=== PATIENT | female | born 1990 | race Hispanic/Latino ===

== ENCOUNTER 2018-01-03 23:39 | Outpatient (CLI) | payer MEDICAID ==
[2018-01-04 00:12] VITALS: BP 119/62
[2018-01-04] MEDS ORDERED: LACTATED RINGERS 500 ML IV ONE (00:46)
[2018-01-04 01:30] LABS: Bacteria,Urine 2+ /HPF (Negative); Bilirubin,Urine NEG (Negative); Blood,Urine NEG (Negative); Calcium Oxalate Crystals,Urine 3+; Color,Urine Yellow (Yellow); Mucus,Urine FEW /HPF; Protein,Urine <15 mg/dL mg/dL (Negative); Urobilinogen,Urine < 2.0 mg/dL (<2.0)
[2018-01-04 01:32] LABS: RBC,Urine < 1.0 /HPF (0.0-6.0)
--- NOTE | 2018-01-04 02:03 | Ultrasound Report ---
FINAL REPORT EXAM: US OB LIMITED HISTORY: unable to assess heart tones TECHNIQUE: A limited OB sonogram was obtained to evaluate for viability. FINDINGS: There is a single fetus in cephalic presentation. The heart rate is 135 BPM. The placenta is anterior in position is grade 0. A survey of organs was not obtained. IMPRESSION: heart rate is 135 BPM.
== END 2018-01-04 02:55 | disposition home or self-care (01) ==
LOC: TRG 23:39
PROVIDERS: ATTEND Obstetrics & Gynecology
DX: O47.02 False labor before 37 completed weeks of gestation, second trimester (principal); Z3A.21 21 weeks gestation of pregnancy
CPT/HCPCS: 76815; 81001

== ENCOUNTER 2018-03-01 22:18 | Outpatient (CLI) | payer SELFPAY ==
[2018-03-01 22:53] VITALS: BP 113/60
== END 2018-03-01 23:19 | disposition home or self-care (01) ==
LOC: TRG 22:18
PROVIDERS: ATTEND Obstetrics & Gynecology
DX: O47.03 False labor before 37 completed weeks of gestation, third trimester (principal); Z3A.29 29 weeks gestation of pregnancy
CPT/HCPCS: 59025

== ENCOUNTER 2018-03-10 23:57 | Outpatient (CLI) | payer SELFPAY ==
[2018-03-11 00:42] VITALS: BP 118/76
[2018-03-11 01:51] LABS: Bacteria,Urine 2+ /HPF (Negative); Bilirubin,Urine NEG (Negative); Blood,Urine NEG (Negative); Calcium Oxalate Crystals,Urine 3+; Color,Urine Yellow (Yellow); Mucus,Urine 1+ /HPF; Protein,Urine <15 mg/dL mg/dL (Negative); Urobilinogen,Urine < 2.0 mg/dL (<2.0)
[2018-03-11] MEDS ORDERED: LACTATED RINGERS 500 ML IV ONE (02:42)
== END 2018-03-11 02:47 | disposition home or self-care (01) ==
LOC: TRG 23:57
PROVIDERS: ATTEND Obstetrics & Gynecology
DX: O47.03 False labor before 37 completed weeks of gestation, third trimester (principal); Z3A.30 30 weeks gestation of pregnancy
CPT/HCPCS: 81001

== ENCOUNTER 2018-04-03 15:56 | Emergency (ER) | payer MEDICAID ==
[2018-04-03] MEDS ORDERED: LACTATED RINGERS 500 ML IV ONE (16:21)
--- NOTE | 2018-04-03 17:52 | Ultrasound Report ---
FINAL REPORT PROCEDURE: Ultrasound biophysical profile without nonstress test. TECHNIQUE: Sonographic evaluation for breathing, movement, tone, and amniotic fluid volume was performed. CPT 85363 HISTORY: Patient fell, . COMPARISON: No prior studies are available for comparison. FINDINGS: Amniotic fluid volume: 2. breathin. movement: 2. tone: 2. Score: 8 of 8. IMPRESSION: Normal biophysical profile.
--- NOTE | 2018-04-03 17:56 | Ultrasound Report ---
FINAL REPORT PROCEDURE: Limited obstetrical ultrasound. TECHNIQUE: Real-time limited sonographic examination was performed for evaluation of size, position, heartbeat, fluid volume for each fetus with image documentation (1 or more fetuses). CPT 11724 HISTORY: Patient fell, , rule out abruption. COMPARISON: Limited obstetrical ultrasound 01/03/2018. FINDINGS: There is a single viable fetus in cephalic presentation. Cardiac activity is documented at 148 beats per minute. The amniotic fluid index measures 14.2 centimeters. The placenta is anterior in location and grade 1. There are no signs of placental abruption. IMPRESSION: Viable fetus. No evidence of placental abruption.
[2018-04-03 18:52] VITALS: BP 105/78
--- NOTE | 2018-04-03 20:26 | XRay Report ---
FINAL REPORT PROCEDURE: Right ankle. TECHNIQUE: AP and lateral portable views. HISTORY: ankle pain status post fall . COMPARISON: No prior studies are available for comparison. FINDINGS: There are 2 internal fixation screws in the distal tibia. There are no acute fractures. 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 There is soft tissue swelling in the ankle. IMPRESSION: No evidence of fracture. Soft tissue swelling.
--- NOTE | 2018-04-03 23:30 | Emergency Department Report ---
ED Fall HPI - General Chief Complaint: Extremity Injury, Lower Stated Complaint: fall with swollen ankle Time Seen by Provider: 04/03/18 23:20 Source: patient, family Mode of arrival: Wheelchair Limitations: No Limitations - History of Present Illness Initial Comments: This is a 27-year-old patient here reports that she is 34 weeks and she injured her right ankle after falling. She reports that ankle is swollen and pain is 3/10 and feels dull. She denies any abdominal or back pain. Denies vaginal bleeding or discharge. She has regular care. Patient went to labor and delivery up on arrival to the emergency room. She had obstetric ultrasound and also biophysical profile done and she was sent back to the emergency room for evaluation of fall with right ankle swelling. Pain is alleviated with rest and worse with walking and palpation. No medication taken prior to coming to the emergency room. 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 denies: headache, neck pain, numbness, weakness, chest paint, shortness of breath, abdominal pain, hematuria, lightheaded, vertigo, confusion - Related Data Previous Rx's Medication Instructions Recorded Last Taken Type Vit No.130/Iron/Folic 1 each PO QDAY #30 tablet 08/09/16 1 Day Ago Rx [ Tablet] ~04/02/18 Acetaminophen [Tylenol] 500 mg PO Q8H PRN #12 tablet 04/03/18 Unknown Rx Allergies Allergy/AdvReac Type Severity Reaction Status Date / Time No Known Allergies Allergy Verified 10/14/15 21:19 ED Review of Systems ROS: Stated complaint: Other details as noted in HPI Constitutional: denies: chills, fever ENT: denies: epistaxis Respiratory: denies: cough, shortness of breath, SOB with exertion, SOB at rest , wheezing Cardiovascular: denies: chest pain, palpitations, edema, syncope Gastrointestinal: denies: abdominal pain, nausea, vomiting, diarrhea Genitourinary: denies: urgency, dysuria Musculoskeletal: joint swelling, arthralgia. denies: back pain, myalgia Skin: denies: rash, lesions Neurological: abnormal gait (due to right ankle pain and swelling after falling) . denies: headache, weakness, numbness, paresthesias, vertigo ED Past Medical Hx - Past Medical History Previous Medical History?: Yes Hx Hypertension: No Hx Diabetes: No Hx Deep Vein Thrombosis: No Hx Renal Disease: No Hx Sickle Cell Disease: No Hx Seizures: No Hx Asthma: No Hx HIV: No Additional medical history: Morbid obesity - Surgical History Past Surgical History?: Yes Additional Surgical History: x 2 - Family History Family history: hypertension - Social History Smoking Status: Current Every Day Smoker Substance Use Type: None - Medications Home Medications: Home Medications Medication Instructions Recorded Confirmed Last Taken Type Vit No.130/Iron/Folic 1 each PO QDAY #30 tablet 08/09/16 04/03/18 1 Day Ago Rx [ Tablet] ~04/02/18 Acetaminophen [Tylenol] 500 mg PO Q8H PRN #12 tablet 04/03/18 Unknown Rx ED Physical Exam - General Limitations: Physical Limitation General appearance: alert, in no apparent distress - Head Head exam: Present: atraumatic, normocephalic, normal inspection, other (normal exam) - Eye Eye exam: Present: normal appearance, PERRL, EOMI Pupils: Present: normal accommodation - ENT ENT exam: Present: normal exam, normal orophraynx, mucous membranes moist - Neck Neck exam: Present: normal inspection, full ROM, other (no C-spine tenderness). Absent: tenderness, lymphadenopathy - Respiratory Respiratory exam: Present: normal lung sounds bilaterally. Absent: respiratory distress, chest wall tenderness - Cardiovascular Cardiovascular Exam: Present: regular rate, normal rhythm, normal heart sounds. Absent: systolic murmur, diastolic murmur - GI/Abdominal GI/Abdominal exam: Present: soft, normal bowel sounds. Absent: distended, tenderness, guarding, rebound, rigid, organomegaly - Extremities Exam Extremities exam: Present: normal inspection, tenderness (right ankle), normal capillary refill, joint swelling (right ankle), other (no clubbing, cyanosis or edema to extremities. Positive swelling to right ankle, tender to palpate the right ankle. Limited range of motion to right other ankle. No neurovascular compromise. Patient with small abrasion to proximal dorsum of foot.). Absent: full ROM (limited range of motion to right ankle), pedal edema, calf tenderness - Expanded Lower Extremity Exam Right Hip exam: Present: normal inspection, full ROM, pelvic stability. Absent: tenderness, swelling, abrasion, laceration, ecchymosis, deformity, crepidus, dislocation, erythema, external rotation, internal rotation, shortening Upper Leg exam: Present: normal inspection, full ROM. Absent: tenderness, swelling, abrasion, laceration, ecchymosis, deformity, crepidus, dislocation, erythema Knee exam: Present: normal inspection, full ROM, full knee extension. Absent: tenderness, swelling, abrasion, laceration, ecchymosis, deformity, crepidus, dislocation, erythema, effusion, pain w/ pronation/supination, posterior draw sign, pain/laxity with valgus, pain/laxity with varus Lower Leg exam: Present: normal inspection, full ROM. Absent: tenderness, swelling, abrasion, laceration, ecchymosis, deformity, crepidus, dislocation, erythema, palpable cord, Caridad's sign Ankle exam: Present: tenderness (right outer ankle), swelling (right outer ankle ). Absent: normal inspection, full ROM (pain with dorsiflexion and plantar flexion to right outer ankle), abrasion, laceration, ecchymosis, deformity, crepidus, dislocation, erythema Foot/Toe exam: Present: full ROM, abrasion (proximal dorsum of right foot). Absent: normal inspection, tenderness, swelling, laceration, ecchymosis, deformity, crepidus, dislocation, erythema, amputation, puncture wound, foreign body, calcaneal tenderness, tenderness at base of 5th metatarsal, nail avulsion , subungual hematoma Neuro vascular tendon exam: Present: no vascular compromise, significant pain with passive ROM of distal joint. Absent: pulse deficit, abnormal cap refill, sensory deficit, tendon deficit, extremity cold to touch, pallor, abnormal 2- point discrimination, decreased fine/light touch, foot drop, peroneal nerve deficit Gait: Positive: antalgic - Back Exam Back exam: Present: normal inspection, full ROM. Absent: tenderness, CVA tenderness (R), CVA tenderness (L), muscle spasm, paraspinal tenderness, vertebral tenderness, rash noted - Neurological Exam Neurological exam: Present: alert, oriented X3, abnormal gait (patient is unable to weight-bear to right lower extremity due to pain and swelling after falling.), reflexes normal. Absent: motor sensory deficit - Psychiatric Psychiatric exam: Present: normal affect, normal mood - Skin Skin exam: Present: warm, dry, intact, normal color, erythema, abrasion (right dorsum of foot) ED Course Vital Signs 04/03/18 04/03/18 04/03/18 16:19 16:31 16:36 Temperature 97.6 F Pulse Rate 127 H 121 H 105 H Respiratory 22 Rate Blood Pressure 113/58 Blood Pressure 113/58 [Left] O2 Sat by Pulse 98 98 Oximetry 04/03/18 04/03/18 04/03/18 16:41 16:46 16:47 Temperature Pulse Rate 113 H 116 H 115 H Respiratory Rate Blood Pressure Blood Pressure [Left] O2 Sat by Pulse 98 100 91 Oximetry 04/03/18 04/03/18 04/03/18 16:51 16:56 17:01 Temperature Pulse Rate 114 H 104 H 107 H Respiratory Rate Blood Pressure Blood Pressure [Left] O2 Sat by Pulse 97 98 98 Oximetry 04/03/18 04/03/18 04/03/18 18:46 21:00 21:05 Temperature 98.2 F Pulse Rate 100 H 88 89 Respiratory 22 Rate Blood Pressure 105/78 Blood Pressure [Left] O2 Sat by Pulse 99 98 98 Oximetry 04/03/18 04/03/18 04/03/18 21:10 21:15 21:20 Temperature Pulse Rate 84 86 81 Respiratory Rate Blood Pressure Blood Pressure [Left] O2 Sat by Pulse 98 98 98 Oximetry 04/03/18 04/03/18 04/03/18 21:25 21:30 21:35 Temperature Pulse Rate 80 80 78 Respiratory Rate Blood Pressure Blood Pressure [Left] O2 Sat by Pulse 100 99 99 Oximetry 04/03/18 04/03/18 04/03/18 21:40 21:45 21:50 Temperature Pulse Rate 82 75 83 Respiratory Rate Blood Pressure Blood Pressure [Left] O2 Sat by Pulse 99 99 99 Oximetry 04/03/18 04/03/18 04/03/18 22:41 22:46 22:52 Temperature Pulse Rate 78 81 85 Respiratory Rate Blood Pressure Blood Pressure [Left] O2 Sat by Pulse 98 97 100 Oximetry 04/03/18 04/03/18 04/03/18 22:57 23:02 23:07 Temperature Pulse Rate 80 76 78 Respiratory Rate Blood Pressure Blood Pressure [Left] O2 Sat by Pulse 100 99 98 Oximetry 04/03/18 04/03/18 04/03/18 23:13 23:18 23:23 Temperature Pulse Rate 80 76 72 Respiratory Rate Blood Pressure Blood Pressure [Left] O2 Sat by Pulse 99 98 97 Oximetry 04/03/18 04/03/18 04/03/18 23:28 23:33 23:38 Temperature Pulse Rate 73 72 73 Respiratory Rate Blood Pressure Blood Pressure [Left] O2 Sat by Pulse 98 98 97 Oximetry 04/03/18 04/03/18 04/03/18 23:43 23:48 23:53 Temperature Pulse Rate 70 79 77 Respiratory Rate Blood Pressure Blood Pressure [Left] O2 Sat by Pulse 98 100 99 Oximetry 04/03/18 23:58 Temperature Pulse Rate 73 Respiratory Rate Blood Pressure Blood Pressure [Left] O2 Sat by Pulse 100 Oximetry - Reevaluation(s) Reevaluation #1: 04/03/18 23:35 Patient's stable throughout ED course. She did not want anything for pain and said that she'll take a prescription for Tylenol to go home as she is . Reevaluation #2: 04/03/18 23:37 See procedure note for details and splinted. Patient did not want crutches as she is afraid that she'll fall so she's that she has a walker at home from where she had previous ankle injury and she uses a walker. She'll be wheeled out to car and wheelchair ED Medical Decision Making - Radiology Data Radiology results: report reviewed X-ray of right ankle dictated by radiologist and report reviewed by myself. See below for details. Obstetrics ultrasound, limited and biophysical profile done in labor and delivery and dictated by radiologist's. See below for details. Patient: SAMREEN MONTOYA MR#: [id number] : 1990 Acct:[id number] Age/Sex: 27 / F ADM Date: 04/03/18 Loc: ED Attending Dr: Ordering Physician: KINJAL ROMAN MD Date of Service: 04/03/18 Procedure(s): XR ankle 2V RT Accession Number(s): [id number] cc: KINJAL ROMAN MD Fluoro Time In Minutes: FINAL REPORT PROCEDURE: Right ankle. TECHNIQUE: AP and lateral portable views. HISTORY: ankle pain status post fall . COMPARISON: No prior studies are available for comparison. FINDINGS: There are 2 internal fixation screws in the distal tibia. There are no acute fractures. 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 There is soft tissue swelling in the ankle. IMPRESSION: No evidence of fracture. Soft tissue swelling. Transcribed By: [facility] Dictated By: KINJAL LAGUNAS MD Electronically Authenticated By: KINJAL LAGUNAS MD Signed Date/Time: 04/03/182020 Patient: SAMREEN MONTOYA MR#: [id number] : 1990 Acct:[id number] Age/Sex: 27 / F ADM Date: 04/03/18 Loc: [facility] TR6-[address]: SARA GONZALEZ MD Ordering Physician: SARA GONZALEZ MD Date of Service: 04/03/18 Procedure(s): US OB limited Accession Number(s): [id number] cc: SARA GONZALEZ MD FINAL REPORT PROCEDURE: Limited obstetrical ultrasound. TECHNIQUE: Real-time limited sonographic examination was performed for evaluation of size, position, heartbeat, fluid volume for each fetus with image documentation (1 or more fetuses). CPT 91348 HISTORY: Patient fell, , rule out abruption. COMPARISON: Limited obstetrical ultrasound 01/03/2018. FINDINGS: There is a single viable fetus in cephalic presentation. Cardiac activity is documented at 148 beats per minute. The amniotic fluid index measures 14.2 centimeters. The placenta is anterior in location and grade 1. There are no signs of placental abruption. IMPRESSION: Viable fetus. No evidence of placental abruption. Transcribed By: [facility] Dictated By: KINJAL LAGUNAS MD Electronically Authenticated By: KINJAL LAGUNAS MD Signed Date/Time: 04/03/181750 Patient: SAMREEN MONTOYA MR#: [id number] : 1990 Acct:[id number] Age/Sex: 27 / F ADM Date: 04/03/18 Loc: [facility] TR6-[address]: SARA GONZALEZ MD Ordering Physician: SARA GONZALEZ MD Date of Service: 04/03/18 Procedure(s): US OB BPP wo non-stress Accession Number(s): [id number] cc: SARA GONZALEZ MD FINAL REPORT PROCEDURE: Ultrasound biophysical profile without nonstress test. TECHNIQUE: Sonographic evaluation for breathing, movement, tone, and amniotic fluid volume was performed. CPT 64907 HISTORY: Patient fell, . COMPARISON: No prior studies are available for comparison. FINDINGS: Amniotic fluid volume: 2. breathin. movement: 2. tone: 2. Score: 8 of 8. IMPRESSION: Normal biophysical profile. Transcribed By: [facility] Dictated By: KINJAL LAGUNAS MD Electronically Authenticated By: KINJAL LAGUNAS MD Signed Date/Time: 04/03/181747 DD/ 47 TD/TT: 04/03/181747 - Medical Decision Making This is a 27-year-old patient presents to emergency room report that she is 34 weeks and she fell and injured her right ankle and now with right ankle pain and swelling. She gets regular care and has been followed by Dr. Matthew Gonzalez. Patient was sent to labor and delivery where they did biophysical profile and OB limited ultrasound and report shows that patient has single intrauterine with no abnormality. And biophysical profile is within normal limits. Patient is not having any symptoms of abdominal pain, back pain, vaginal bleeding or discharge. Patient was seen and examined by myself. She was found to have right outer ankle swelling, pain to ankle with range of motion active and passive and she is unable to weight-bear. X-ray right ankle done and dictated by radiologist and report reviewed by myself. Report shows no fracture or dislocation but soft tissue swelling. Patient with right ankle sprain secondary to injury and right ankle pain. Please refer to procedure note for details splint. Patient did not need any pain medication in the emergency room. She said she only has pain when she weight-bear. Patient's given information on x-ray reports and that she needs to follow-up with orthopedic doctor and her POLICE RECORDS CLERK doctor. She voiced understanding. A/P 1: Right ankle sprain-ankle stirrup, Rice therapy and follow-up with orthopedic doctor. Started on no weightbearing. Patient did not want crutches as she says she is afraid of falling so she said she has a walker at home that she'll use. 2: Right ankle pain secondary to injury-prescription for Tylenol plain when necessary Patient educated on Rice therapy, medication, diagnosis and treatment plan. Instructed on splint care. Patient discharged home in stable condition with prescription for Tylenol plain and to follow up with orthopedic doctor and her POLICE RECORDS CLERK doctor in 2 days. Patient is better after splint placement. Her vital signs are stable she is afebrile. Discharge home with her family in stable condition and voices understanding of discharge instruction teaching. - Differential Diagnosis ankle fracture, ankle sprain, ankle strain, musculoskeletal pain Critical care attestation.: If time is entered above; I have spent that time in minutes in the direct care of this critically ill patient, excluding procedure time. ED Disposition Clinical Impression: Arthralgia of right ankle Right ankle sprain Qualifiers: Encounter type: initial encounter Involved ligament of ankle: unspecified ligament Qualified Code(s): S93.401A - Sprain of unspecified ligament of right ankle, initial encounter Fall, accidental Qualifiers: Encounter type: initial encounter Qualified Code(s): W19.XXXA - Unspecified fall, initial encounter Disposition: - TO HOME OR SELFCARE Is pt being admited?: No Does the pt Need Aspirin: No Condition: Stable Instructions: Ankle Sprain (ED), Ankle Stirrup Splint (ED), Arthralgia (ED), RICE Therapy (ED), Fall Prevention (ED) Additional Instructions: See discharge instruction paperwork for rice therapy Take Tylenol plain as prescribed for pain. Follow-up with orthopedic doctor in 3-5 days Please do not weight-bear to right lower extremity and use walker as discussed. If your symptoms worsens, return to emergency room. Follow-up with your POLICE RECORDS CLERK on 04/06/2018. If you develop abdominal pain, back pain, vaginal bleeding, please return to emergency room Prescriptions: Acetaminophen [Tylenol] 500 mg PO Q8H PRN #12 tablet PRN Reason: right ankle pain Referrals: SARA GONZALEZ MD [Primary Care Provider] - 04/06/18 WARREN NATARAJAN MD [Staff Physician] - 3-5 Days Forms: Work/School Release Form(ED)
[2018-04-03] MEDS ORDERED: TRIPLE ANTIBIOTIC TP ONE (23:44)
== END 2018-04-03 23:59 | disposition home or self-care (01) ==
LOC: TRG 15:56 → ED 15:56 → TRG 15:58 → EDSTATUS 18:44 → ED 23:59
DX: O9A.213 Injury, poisoning and certain other consequences of external causes complicating pregnancy, third trimester (principal); S93.401A Sprain of unspecified ligament of right ankle, initial encounter; E66.01 Morbid (severe) obesity due to excess calories; F17.200 Nicotine dependence, unspecified, uncomplicated; Z3A.34 34 weeks gestation of pregnancy; W18.30XA Fall on same level, unspecified, initial encounter; Y93.89 Activity, other specified; Y99.8 Other external cause status; Y92.098 Other place in other non-institutional residence as the place of occurrence of the external cause
CPT/HCPCS: 51701; 76815; 76819; A6250

== ENCOUNTER 2018-04-21 14:00 | Outpatient (CLI) | payer MEDICAID ==
[2018-04-21 15:31] VITALS: BP 101/61
[2018-04-21 16:27] LABS: Bacteria,Urine 2+ /HPF (Negative); Bilirubin,Urine NEG (Negative); Blood,Urine NEG (Negative); Color,Urine Yellow (Yellow); Mucus,Urine 1+ /HPF; Protein,Urine <15 mg/dL mg/dL (Negative); Urobilinogen,Urine < 2.0 mg/dL (<2.0)
== END 2018-04-21 17:00 | disposition home or self-care (01) ==
LOC: TRG 14:00
PROVIDERS: ATTEND Obstetrics & Gynecology
DX: O47.03 False labor before 37 completed weeks of gestation, third trimester (principal); Z3A.36 36 weeks gestation of pregnancy
CPT/HCPCS: 59025; 81001

== ENCOUNTER 2018-05-06 11:22 | Inpatient (IN) | payer MEDICAID ==
[2018-05-06] MEDS ORDERED: LACTATED RINGERS 1,000 ML ONE (13:11)
[2018-05-06] MEDS ORDERED: REGLAN IV ONE ×2 (14:45→23:15)
[2018-05-06] MEDS ORDERED: BICITRA PO ONE ×2 (14:45→23:15)
[2018-05-06] MEDS ORDERED: PEPCID IV ONE ×2 (14:45→23:15)
--- NOTE | 2018-05-06 14:47 | History and Physical Report ---
History of Present Illness Date of examination: 05/06/18 Date of admission: 05/06/18 11:22 Chief complaint: Pt presents for a Repeat C Section History of present illness: Pt is a 27yo WF EDC 05/16/18; EGA 38 4/7 weeks presents from [facility] for Repeat C Section due to Oligohydramnios and NICOLAS of 3.74cm and BPP was 4/8. She denies ROM, bleeding or contractions. She received care at [facility] since 9 weeks and co-managed with [facility] for Morbid Obesity and previous C Section x 2. records are available and GBS is negative but Chlamydia is Positive. Past History Past Medical History: other (Morbid Obesity) Past Surgical History: section (x2) [employer] History: chlamydia Family/Genetic History: none Social history: no significant social history, single - Obstetrical History Expected Date of Delivery: 05/16/18 Actual Gestation: 38 Week(s) 4 Day(s) : 4 Medications and Allergies Allergies Allergy/AdvReac Type Severity Reaction Status Date / Time No Known Allergies Allergy Verified 10/14/15 21:19 Home Medications Medication Instructions Recorded Confirmed Last Taken Type Vit No.130/Iron/Folic 1 each PO QDAY #30 tablet 08/09/16 04/21/18 1 Day Ago Rx [ Tablet] ~04/02/18 Acetaminophen [Tylenol] 500 mg PO Q8H PRN #12 tablet 04/03/18 04/21/18 Unknown Rx Review of Systems All systems: negative - Vital Signs Vital signs: Vital Signs Temp Pulse Resp BP Pulse Ox 96.8 F L 97 H 20 121/73 96 05/06/18 12:40 05/06/18 12:40 05/06/18 12:40 05/06/18 12:40 05/06/18 12:40 Temp Pulse Resp BP Pulse Ox 96.8 F L 90 20 121/73 83 L 05/06/18 12:40 05/06/18 13:37 05/06/18 12:40 05/06/18 12:42 05/06/18 13:37 - Physical Exam Breasts: Positive: deferred Cardiovascular: Regular rate Lungs: Positive: Clear to auscultation Abdomen: Positive: normal appearance, soft Genitourinary (Female): Positive: normal external genitalia Uterus: Positive: enlarged Extremities: Positive: edema - Obstetrical FHR: category 1 Uterine Contraction Monitor Mode: External Uterine Contraction Pattern: Absent Results Result Diagrams: 05/06/18 14:00 All other labs normal. Ultrasound: report reviewed Assessment and Plan - Patient Problems (1) 38 weeks gestation of Onset Date: 05/06/18 Current Visit: Yes Status: Acute Plan to address problem: A: IUP @ 38 4/7 weeks Previous C Section x 2 Oligohydramnios Morbid Obesity Positive Chlamydia - P: Admit to L&D for Repeat C Section #3 IV Zithromax (2) Previous section complicating Onset Date: 05/06/18 Current Visit: Yes Status: Acute (3) Oligohydramnios without rupture of membranes in third trimester Onset Date: 05/06/18 Current Visit: Yes Status: Acute Qualifiers: Fetus number: single or unspecified fetus Qualified Code(s): O41.03X0 - Oligohydramnios, third trimester, not applicable or unspecified (4) Morbid (severe) obesity due to excess calories Onset Date: 05/06/18 Current Visit: Yes Status: Acute (5) Chlamydia infection Onset Date: 05/06/18 Current Visit: Yes Status: Acute
[2018-05-06] MEDS ORDERED: PITOCin/NS 20 UNIT/1000ML DRIP 20 UNITS/1,000 ML BAG IV SCH (15:00)
[2018-05-06] MEDS ORDERED: LACTATED RINGERS 1,000 ML IV SCH (15:00)
[2018-05-06] MEDS ORDERED: ANCEF/STERILE WATER 2 GM/20 ML 2 GM/20 ML SYRINGE IV NR (15:00)
[2018-05-06 15:03] LABS: Basophils % (Auto) 0.1 % (0.0-1.8); Eosinophils # (Auto) 0.1 K/mm3 (0.0-0.4); Eosinophils % (Auto) 0.6 % (0.0-4.3); Hematocrit 33.5 % (30.3-42.9); Lymphocytes # (Auto) 1.9 K/mm3 (1.2-5.4); Lymphocytes % (Auto) 15.1 % (13.4-35.0); Mean Corpuscular HGB Conc 33 % (30-34); Mean Corpuscular Hemoglobin 27 pg (28-32); Mean Corpuscular Volume 84 fl (79-97); Monocytes # (Auto) 0.7 K/mm3 (0.0-0.8); Monocytes % (Auto) 5.8 % (0.0-7.3); Platelet Count 259 K/mm3 (140-440); Red Cell Distribution Width 18.3 % (13.2-15.2)
[2018-05-06] MEDS ORDERED: ZITHROMAX 500 MG in NACL 0.9% 250ML 250 ML IV SCH (17:00)
--- NOTE | 2018-05-06 18:51 | Anesthesia Consultation ---
Anesthesia Consult and Med Hx Date of service: 05/06/18 - Airway Anesthetic Teeth Evaluation: Poor ROM Head & Neck: Inadequate Mental/Hyoid Distance: Adequate Mallampati Class: Class III Intubation Access Assessment: Possibly Difficult - Pulmonary Exam CTA: Yes - Cardiac Exam Cardiac Exam: RRR - Pre-Operative Health Status ASA Pre-Surgery Classification: ASA3, Emergency Proposed Anesthetic Plan: General, Epidural - Pre-Anesthesia Comment Pre-Anesthesia Comments: Patient had wet tap with prior epidural,when she was smaller. - Pulmonary Hx Asthma: No - Cardiovascular System Hx Hypertension: No - Central Nervous System Hx Seizures: No Hx Psychiatric Problems: No - Endocrine Hx Renal Disease: No Hx Hypothyroidism: No Hx Hyperthyroidism: No - Hematic Hx Anemia: No Hx Sickle Cell Disease: No - Other Systems Hx Alcohol Use: No
[2018-05-07] MEDS ORDERED: NEO SYNEPHRINE/NS Syringe(OR USE) IV ONE (00:38)
[2018-05-07] MEDS ORDERED: WATER FOR IRRIG STERILE IR ONE (00:40)
[2018-05-07] MEDS ORDERED: NACL 0.9% IR ONE (00:40)
[2018-05-07] MEDS: PITOCin/NS 20 UNIT/1000ML DRIP 20 UNITS/1,000 ML BAG IV SCH ×2 (00:57→03:47)
[2018-05-07] MEDS ORDERED: XYLOCAINE MPF 2% ONE ×2 (01:12→01:18)
[2018-05-07] MEDS ORDERED: LACTATED RINGERS 1,000 ML ONE (01:54)
[2018-05-07] MEDS ORDERED: ZOFRAN ONE (01:54)
[2018-05-07] MEDS ORDERED: MORPHINE ONE (01:55)
--- NOTE | 2018-05-07 01:59 | Operative Report ---
Operative Report Operative Report: Date of procedure: 05/07/2018 Pre-operative diagnosis: 1. Intrauterine at 38-5/7 weeks 2. Previous 2 3. Oligohydramnios 4. Morbid obesity Post-operative diagnosis: Same Procedure name(s): Repeat low transverse section Surgeon: Alber Gonzalez MD Retail Sales Associate: None Anesthesia: Spinal anesthesia by Dr. Noland EBL: 600 mL's Findings: A 3690 g female Apgars 8 at 1 minute and 9 at 5 minutes. Clear amniotic fluid. Normal uterus. Normal tubes and ovaries bilaterally. Procedure: After the patient was prepped and draped in usual sterile fashion, and after satisfactory level of epidural anesthesia was obtained, the skin knife was used to make a transverse skin incision through the previous skin scars. The incision was excised down to layer of the fascia, which was nicked in the midline and extended laterally using the Bovie cautery. The rectus muscles were dissected off the rectus fascia both superiorly and inferiorly. The rectus bellies in the midline, and the peritoneum was entered under direct visualization. The peritoneal incision was extended superiorly and inferiorly. A bladder flap was created and the bladder blade was then placed. The uterus was scored in a curvilinear linear fashion, entered in the midline revealing clear amniotic fluid. The infant's head was delivered onto the surgical field with the aid of a vacuum, and the oropharynx and nasopharynx were bulb suctioned. The rest of the infant's body was delivered, cord was doubly clamped and cut and the infant was handed to the waiting respiratory team. The placenta was manually removed from the uterus, and the uterus removed from its normal anatomical position. After gentle uterine lavage, the incision was inspected and found to be without extensions. It was then closed in 2 layers using 0 Vicryl suture in a running interlocking fashion, the second layer imbricating the first. After good hemostasis was achieved, copious amounts or irrigation was performed, and the gutters were suctioned free of blood and blood clots. The Tisseel sealant was sprayed across the uterine incision. The uterus was then returned to its normal anatomical position, and after excellent hemostasis assured, the peritoneum was re-approximated using 3- 0 Vicryl suture in a running interlocking fashion, and then the rectus muscles were re-approximated using 3-0 Vicryl suture in a [id number] configuration. The fascia was then re-approximated using 0 Vicryl suture in running interlocking fashion. The subcutaneous layer was made hemostatic using Bovie cautery and re-approximated using 0 Vicryl suture in a running interlocking fashion, the Tisseel sealant was sprayed across the fascial incision and the skin edges re-approximated using 4-0 Vicryl suture in a sub- cuticular fashion. Patient tolerated the procedure well was transported to recovery in stable condition.
[2018-05-07] MEDS ORDERED: ZOFRAN IV PRN ×2 (02:07→02:25)
[2018-05-07] MEDS ORDERED: NARCAN 0.4 MG/1 ML IV PRN ×2 (02:07→02:25)
[2018-05-07] MEDS ORDERED: MILK OF MAGNESIA PO PRN (02:07)
[2018-05-07] MEDS ORDERED: TYLENOL PO PRN (02:07)
[2018-05-07] MEDS ORDERED: TORADOL IV PRN (02:07)
[2018-05-07] MEDS ORDERED: SENOKOT PO PRN (02:07)
[2018-05-07] MEDS ORDERED: LANSINOH TP PRN (02:07)
[2018-05-07] MEDS ORDERED: TUCKS PAD TP PRN (02:07)
[2018-05-07] MEDS ORDERED: PHENERGAN PR PRN (02:25)
[2018-05-07] MEDS ORDERED: PHENERGAN PO PRN (02:25)
[2018-05-07] MEDS ORDERED: DILAUDID IV PRN (02:25)
[2018-05-07] MEDS ORDERED: D5LR 1,000 ML IV SCH (03:00)
[2018-05-07] MEDS ORDERED: SODIUM CHLORIDE FLUSH SYRINGE 10 ML IV NR ×2 (03:00)
[2018-05-07] MEDS: NORCO 5/325 PO PRN ×2 (06:50→19:53)
[2018-05-07] MEDS: ANCEF/NS 1 GM/50 ML 1 GM/50 ML BAG IV SCH ×2 (06:51→20:08)
[2018-05-07 16:34] LABS: Hematocrit 29.3 % (30.3-42.9); Hemoglobin 9.7 gm/dl (10.1-14.3)
[2018-05-07] MEDS: MOTRIN PO PRN (19:52)
[2018-05-08] MEDS: MOTRIN PO PRN ×2 (01:58→09:30)
[2018-05-08] MEDS: PERCOCET 5/325 PO PRN ×2 (01:59→09:40)
[2018-05-08] MEDS ORDERED: BOOSTRIX IM ONE (06:00)
[2018-05-08] MEDS ORDERED: M-M-R II VACCINE SUB-Q ONE (06:00)
[2018-05-08] MEDS: FEOSOL PO SCH ×2 (09:10→09:45)
[2018-05-08] MEDS: PRENATAL VITAMIN PO SCH (09:30)
--- NOTE | 2018-05-08 13:03 | Progress Note ---
Assessment and Plan - Patient Problems (1) 38 weeks gestation of Onset Date: 05/06/18 Current Visit: Yes Status: Resolved (2) Previous section complicating Onset Date: 05/06/18 Current Visit: Yes Status: Resolved (3) Oligohydramnios without rupture of membranes in third trimester Onset Date: 05/06/18 Current Visit: Yes Status: Resolved Qualifiers: Fetus number: single or unspecified fetus Qualified Code(s): O41.03X0 - Oligohydramnios, third trimester, not applicable or unspecified (4) Morbid (severe) obesity due to excess calories Onset Date: 05/06/18 Current Visit: Yes Status: Chronic (5) Chlamydia infection Onset Date: 05/06/18 Current Visit: Yes Status: Resolved (6) Status post Onset Date: 05/08/18 Current Visit: Yes Status: Resolved Plan to address problem: A: S/P C Section - POD #1 Doing well Asymptomatic anemia - stable P: Continue RPOC Anticipate discharge in 24-48hrs Subjective - Subjective Date of service: 05/08/18 Principal diagnosis: s/p Repeat C Section - POD #1 Interval history: Pt is feeling well without complaints. Bleeding improved. She is tolerating a reg diet without nausea or vomiting, ambulating and voiding without difficulty. Wants to go home. Patient reports: appetite normal, voiding normally, pain well controlled, flatus , ambulating normally, no dizzy ambulation, no nauseated [place]: doing well, nursing well, bottle feeding Objective - Vital Signs Latest vital signs: Vital Signs Temp Pulse Resp BP BP Pulse Ox 05/08/18 07:55 97.7 F 98 H 20 100/42 97 05/07/18 23:50 98.3 F 78 18 128/68 98 05/07/18 15:41 98.2 F 92 H 20 118/70 97 Intake and Output 05/07/18 05/08/18 05/08/18 22:59 06:59 14:59 Intake Total 240 240 Output Total 450 Balance -210 240 Intake: Oral 240 240 Output: Urine 450 Indwelling Catheter 450 Other: Total, Intake Amount 240 240 Total, Output Amount 450 # Voids Indwelling Catheter 1 - Exam Breasts: Present: deferred Cardiovascular: Present: Regular rate Lungs: Present: Clear to auscultation Abdomen: Present: normal appearance, soft Uterus: Present: normal, firm, fundal height below umbilicus Extremities: Present: normal Incision: Present: normal, dry, intact, dressed - Labs Labs: Abnormal lab results 05/07/18 Range/Units 15:55 Hgb 9.7 L (10.1-14.3) gm/dl Hct 29.3 L (30.3-42.9) % Laboratory Tests 05/06/18 05/06/18 05/07/18 14:00 14:00 15:55 WBC 12.6 H RBC 4.00 Hgb 11.0 9.7 L Hct 33.5 29.3 L MCV 84 MCH 27 L MCHC 33 RDW 18.3 H Plt Count 259 Lymph % (Auto) 15.1 [place] % (Auto) 5.8 Eos % (Auto) 0.6 Baso % (Auto) 0.1 Lymph # 1.9 [place] # 0.7 Eos # 0.1 Baso # 0.0 Seg Neutrophils % 78.4 H Seg Neutrophils # 9.9 H Blood Type A POSITIVE Antibody Screen Negative
[2018-05-08] MEDS: MYLICON PO PRN (18:52)
[2018-05-09] MEDS: MOTRIN PO PRN (02:18)
[2018-05-09] MEDS: NORCO 5/325 PO PRN (02:18)
[2018-05-09] MEDS: MYLICON PO PRN (02:26)
[2018-05-09 08:14] VITALS: BP 120/67
--- NOTE | 2018-05-09 10:17 | Progress Note ---
Assessment and Plan - Patient Problems (1) 38 weeks gestation of Onset Date: 05/06/18 Current Visit: Yes Status: Resolved (2) Previous section complicating Onset Date: 05/06/18 Current Visit: Yes Status: Resolved (3) Oligohydramnios without rupture of membranes in third trimester Onset Date: 05/06/18 Current Visit: Yes Status: Resolved Qualifiers: Fetus number: single or unspecified fetus Qualified Code(s): O41.03X0 - Oligohydramnios, third trimester, not applicable or unspecified (4) Morbid (severe) obesity due to excess calories Onset Date: 05/06/18 Current Visit: Yes Status: Chronic (5) Chlamydia infection Onset Date: 05/06/18 Current Visit: Yes Status: Resolved (6) Status post Onset Date: 05/08/18 Current Visit: Yes Status: Resolved Plan to address problem: A: S/P C Section - POD #2 Doing well Asymptomatic anemia - stable P: May go home today. Subjective - Subjective Date of service: 05/09/18 Principal diagnosis: s/p Repeat C Section - POD #2 Interval history: Pt is feeling well without complaints. She is tolerating a reg diet without nausea or vomiting, ambulating and voiding without difficulty. Wants to go home. Patient reports: appetite normal, voiding normally, pain well controlled, flatus , ambulating normally, no dizzy ambulation, no nauseated [place]: doing well, bottle feeding Objective - Vital Signs Latest vital signs: Vital Signs Temp Pulse Resp BP BP Pulse Ox 05/09/18 07:30 97.9 F 65 20 120/67 95 05/08/18 23:54 97.7 F 107 H 18 102/54 97 05/08/18 19:59 98.1 F 106 H 20 115/87 97 05/08/18 17:07 98.2 F 103 H 20 111/65 97 05/08/18 12:33 98.5 F 98 H 20 119/71 94 Intake and Output 05/08/18 05/09/18 05/09/18 22:59 06:59 14:59 Intake Total 480 480 Balance 480 480 Intake: Oral 480 480 Other: Total, Intake Amount 480 480 # Voids Indwelling Catheter 1 1 # Bowel Movements 1 - Exam Breasts: Present: deferred Cardiovascular: Present: Regular rate Lungs: Present: Clear to auscultation Abdomen: Present: normal appearance, soft Uterus: Present: normal, firm, fundal height below umbilicus Extremities: Present: normal Incision: Present: normal, dry, intact
--- NOTE | 2018-05-09 10:34 | Discharge Summary ---
Providers - Providers Date of Admission: 05/06/18 11:22 Date of discharge: 05/09/18 Attending physician: SARA CANAS Primary care physician: SARA CANAS Hospitalization Reason for admission: section, IUP at term, other (Oligohydramnios) Delivery: Procedure: section, repeat low transverse Episiotomy: none Laceration: none Incision: normal, dry, intact Other procedures: none complications: none Discharge diagnosis: IUP at term delivered [place] baby: female Hospital course: Pt is a 27yo WF EDC 05/16/18; EGA 38 4/7 weeks who presented from [facility] for Repeat C Section due to Oligohydramnios and NICOLAS of 3.74cm and BPP was 4/8. She was co-managed with [facility] for Morbid Obesity and previous C Section x 2. She underwent an uncomplicated Repeat C Section and tolerated the procedure well. By POD #2 she was tolerating a reg diet without nausea or vomiting, ambulating and voiding without difficulty. She was therefore discharged to home on POD #2 in stable condition. Condition at discharge: Good Disposition: DC-01 TO HOME OR SELFCARE - Discharge Diagnoses (1) 38 weeks gestation of Status: Resolved (2) Previous section complicating Status: Resolved (3) Oligohydramnios without rupture of membranes in third trimester Status: Resolved Qualifiers: Fetus number: single or unspecified fetus Qualified Code(s): O41.03X0 - Oligohydramnios, third trimester, not applicable or unspecified (4) Morbid (severe) obesity due to excess calories Status: Chronic (5) Chlamydia infection Status: Resolved (6) Status post Status: Resolved Plan - Discharge Medications Prescriptions: Ferrous Sulfate [Feosol 325 MG tab] 325 mg PO BID #60 tablet HYDROcodone/APAP 5-325 [Cavour 5/325] 1 each PO Q6HR PRN #30 tablet PRN Reason: Pain Ibuprofen [Motrin] 800 mg PO Q8HR PRN #30 tablet PRN Reason: Moder Pain Unrelieved By [place] Vit Calc,Iron,Folic [ Vitamins] 1 each PO DAILY #30 tablet - Provider Discharge Summary Activity: routine, no sex for 6 weeks, no heavy lifting 4 weeks, no strenuous exercise Diet: routine Instructions: routine Additional instructions: [] Smoking cessation referral if applicable(refer to patient education folder for contact #) [] Refer to [facility]'s [facility] Booklet Call your doctor immediately for: * Fever > 100.5 * Heavy vaginal bleeding ( >1 pad per hour) * Severe persistent headache * Shortness of breath * Reddened, hot, painful area to leg or breast * Drainage or odor from incision. * Keep incision clean and dry at all times and follow doctor's instructions regarding bathing/showering - Follow up plan Follow up: SARA CANAS MD [Primary Care Provider] - 14 Days SERVANDO ROWLAND CNM [Advanced Practice Nurse] - 14 Days
[2018-05-09] MEDS: FEOSOL PO SCH (11:19)
[2018-05-09] MEDS: PRENATAL VITAMIN PO SCH (11:20)
== END 2018-05-09 12:45 | disposition home or self-care (01) | DRG 765 ==
LOC: LD 11:22 → OB 05-07 04:41
PROVIDERS: ADMIT Obstetrics & Gynecology; ATTEND Obstetrics & Gynecology
PROC: 10D00Z1 Extraction of Products of Conception, Low, Open Approach (ICD-10-PCS; principal; 2018-05-07)
DX: O41.03X0 Oligohydramnios, third trimester, not applicable or unspecified (principal); Z68.44 Body mass index [BMI] 60.0-69.9, adult; O98.82 Other maternal infectious and parasitic diseases complicating childbirth; O34.211 Maternal care for low transverse scar from previous cesarean delivery; O99.214 Obesity complicating childbirth; E66.01 Morbid (severe) obesity due to excess calories; Z3A.38 38 weeks gestation of pregnancy; Z37.0 Single live birth; D64.9 Anemia, unspecified; O99.02 Anemia complicating childbirth
CPT/HCPCS: 36415; 85014; 85018; 85025; 86850; 86900; 86901; 99211; C9250; G0463; J0456; J0690; J1885; J2270; J2370; J2405; J2590; J2765; J7050; J7120; J7121

== ENCOUNTER 2020-02-29 18:09 | Emergency (ER) | payer MEDICAID ==
[2020-02-29] MEDS ORDERED: SODIUM CHLORIDE 0.9% 1000 ML 1,000 ML IV ONE (19:43)
[2020-02-29 20:03] LABS: Basophils # (Auto) 0.1 K/mm3 (0.0-0.1); Basophils % (Auto) 0.4 % (0.0-1.8); Eosinophils % (Auto) 0.2 % (0.0-4.3); Hematocrit 31.1 % (30.3-42.9); Hemoglobin 9.9 gm/dl (10.1-14.3); Lymphocytes # (Auto) 1.4 K/mm3 (1.2-5.4); Lymphocytes % (Auto) 7.8 % (13.4-35.0); Mean Corpuscular HGB Conc 32 % (30-34); Mean Corpuscular Volume 84 fl (79-97); Monocytes # (Auto) 0.7 K/mm3 (0.0-0.8); Monocytes % (Auto) 4.2 % (0.0-7.3); Platelet Count 310 K/mm3 (140-440); Red Blood Count 3.68 M/mm3 (3.65-5.03); Red Cell Distribution Width 16.7 % (13.2-15.2)
[2020-02-29 20:23] LABS: BUN/Creatinine Ratio 17; Blood Urea Nitrogen 10 mg/dL (7-17); Calcium 8.9 mg/dL (8.4-10.2); Hemolysis Index 8
[2020-02-29] MEDS ORDERED: KETOROLAC 30 MG/1 ML INJ ONE (21:11)
--- NOTE | 2020-02-29 21:18 | Emergency Department Report ---
ED HPI - General Chief complaint: Vaginal Bleeding Stated complaint: VAGINAL BLEEDING Time Seen by Provider: 02/29/20 19:43 Source: patient, EMS Mode of arrival: Stretcher Limitations: No Limitations - History of Present Illness Initial comments: Patient is a 29-year-old female who is presenting with vaginal bleeding. Patient is approximately 14 weeks and was noted to have demise. Patient was given Cytotec by her primary MEDICAL LAB DIRECTOR. Patient states that she was having heavy bleeding with cramping in lower abdomen prior to arrival. Patient states she soaked through multiple pads and a towel. Patient is states she has some associated dizziness with sitting and standing. States the cramps in the lower abdomen are 8 out of 10 in severity. Patient also is complaining of some shortness of breath and palpitations. - Related Data Previous Rx's Medication Instructions Recorded Last Taken Type Vit No.130/Iron/Folic 1 each PO QDAY #30 tablet 08/09/16 1 Day Ago Rx [ Tablet] ~04/02/18 Acetaminophen [Tylenol] 500 mg PO Q8H PRN #12 tablet 04/03/18 Unknown Rx Ferrous Sulfate [Feosol 325 MG tab] 325 mg PO BID #60 tablet 05/07/18 Unknown Rx HYDROcodone/APAP 5-325 [Bivalve 1 each PO Q6HR PRN #30 tablet 05/07/18 Unknown Rx 5/325] Ibuprofen [Motrin] 800 mg PO Q8HR PRN #30 tablet 05/07/18 Unknown Rx Vit Calc,Iron,Folic 1 each PO DAILY #30 tablet 05/07/18 Unknown Rx [ Vitamins] Allergies Allergy/AdvReac Type Severity Reaction Status Date / Time No Known Allergies Allergy Verified 10/14/15 21:19 ED Review of Systems ROS: Stated complaint: VAGINAL BLEEDING Other details as noted in HPI Comment: All other systems reviewed and negative ED Past Medical Hx - Past Medical History Hx Hypertension: No Hx Diabetes: No Hx Deep Vein Thrombosis: No Hx Renal Disease: No Hx Sickle Cell Disease: No Hx Seizures: No Hx Asthma: Yes Hx COPD: No Hx HIV: No Additional medical history: Morbid obesity - Surgical History Past Surgical History?: Yes Additional Surgical History: x 3 - Social History Smoking Status: Never Smoker Substance Use Type: None - Medications Home Medications: Home Medications Medication Instructions Recorded Confirmed Last Taken Type Vit No.130/Iron/Folic 1 each PO QDAY #30 tablet 08/09/16 04/21/18 1 Day Ago Rx [ Tablet] ~04/02/18 Acetaminophen [Tylenol] 500 mg PO Q8H PRN #12 tablet 04/03/18 04/21/18 Unknown Rx Ferrous Sulfate [Feosol 325 MG tab] 325 mg PO BID #60 tablet 05/07/18 Unknown Rx HYDROcodone/APAP 5-325 [Bivalve 1 each PO Q6HR PRN #30 tablet 05/07/18 Unknown Rx 5/325] Ibuprofen [Motrin] 800 mg PO Q8HR PRN #30 tablet 05/07/18 Unknown Rx Vit Calc,Iron,Folic 1 each PO DAILY #30 tablet 05/07/18 Unknown Rx [ Vitamins] ED Physical Exam - General Limitations: No Limitations General appearance: alert, in no apparent distress - Head Head exam: Present: atraumatic, normocephalic - Eye Eye exam: Present: normal appearance, PERRL, EOMI - ENT ENT exam: Present: mucous membranes moist - Neck Neck exam: Present: normal inspection - Respiratory Respiratory exam: Present: normal lung sounds bilaterally. Absent: respiratory distress, wheezes, rales, rhonchi - Cardiovascular Cardiovascular Exam: Present: regular rate, normal rhythm, normal heart sounds. Absent: systolic murmur, diastolic murmur, rubs, gallop - GI/Abdominal GI/Abdominal exam: Present: soft, tenderness (Mild suprapubic tenderness), normal bowel sounds. Absent: distended, guarding - External exam: Present: other (Only a small amount of blood was found on exam by our nursing staff) - Extremities Exam Extremities exam: Present: normal inspection - Back Exam Back exam: Present: normal inspection - Neurological Exam Neurological exam: Present: alert, oriented X3 - Psychiatric Psychiatric exam: Present: normal affect, normal mood - Skin Skin exam: Present: warm, dry, intact, normal color. Absent: rash ED Course Vital Signs 02/29/20 18:33 Temperature 98.0 F Pulse Rate 141 H Respiratory 23 Rate Blood Pressure 131/85 [Left] O2 Sat by Pulse 100 Oximetry ED Medical Decision Making - Lab Data Result diagrams: 02/29/20 19:48 02/29/20 19:48 Lab Results 02/29/20 02/29/20 Range/Units 19:48 19:48 WBC 17.6 H (4.5-11.0) K/mm3 RBC 3.68 (3.65-5.03) M/mm3 Hgb 9.9 L (10.1-14.3) gm/dl Hct 31.1 (30.3-42.9) % MCV 84 (79-97) fl MCH 27 L (28-32) pg MCHC 32 (30-34) % RDW 16.7 H (13.2-15.2) % Plt Count 310 (140-440) K/mm3 Lymph % (Auto) 7.8 L (13.4-35.0) % [place] % (Auto) 4.2 (0.0-7.3) % Eos % (Auto) 0.2 (0.0-4.3) % Baso % (Auto) 0.4 (0.0-1.8) % Lymph # 1.4 (1.2-5.4) K/mm3 [place] # 0.7 (0.0-0.8) K/mm3 Eos # 0.0 (0.0-0.4) K/mm3 Baso # 0.1 (0.0-0.1) K/mm3 Seg Neutrophils % 87.4 H (40.0-70.0) % Seg Neutrophils # 15.3 H (1.8-7.7) K/mm3 Sodium 133 L (137-145) mmol/L Potassium 4.1 (3.6-5.0) mmol/L Chloride 103.0 (98-107) mmol/L Carbon Dioxide 17 L (22-30) mmol/L Anion Gap 17 mmol/L BUN 10 (7-17) mg/dL Creatinine 0.6 L (0.7-1.2) mg/dL Estimated GFR > 60 ml/min BUN/Creatinine Ratio 17 % Glucose 113 H (65-100) mg/dL Calcium 8.9 (8.4-10.2) mg/dL - Medical Decision Making Patient is a 29-year-old female who is currently being treated for demise. Patient is taken 2 doses of Cytotec and is presenting with some cramping and bleeding. Patient's description of the bleeding is much less than the bleeding she is described at home. Patient appears to have slowed down considerably. Patient's heart rate was elevated this is likely secondary to anxiety as opposed to blood loss. Patient's hemoglobin is stable. Laboratory studies do not show the need for transfusion. Patient is given 1 L of IV hydration and was given some Ativan and Toradol for pain and anxiety. Patient has been reassured and will be discharged home. Critical care attestation.: If time is entered above; I have spent that time in minutes in the direct care of this critically ill patient, excluding procedure time. ED Disposition Clinical Impression: Incomplete miscarriage, Anxiety reaction Disposition: DC-01 TO HOME OR SELFCARE Is pt being admited?: No Does the pt Need Aspirin: No Condition: Stable Instructions: Spontaneous Miscarriage (ED), Misoprostol (By mouth) Referrals: PRIMARY CARE, [Primary Care Provider] - 3-5 Days Time of Disposition: 21:21
[2020-02-29] MEDS ORDERED: KETOROLAC 30 MG/1 ML INJ IV ONE (21:21)
[2020-03-01 13:45] VITALS: BP 123/75
== END 2020-02-29 23:20 | disposition home or self-care (01) ==
LOC: ED 18:09
DX: O03.4 Incomplete spontaneous abortion without complication (principal); F41.1 Generalized anxiety disorder; R42 Dizziness and giddiness; J45.909 Unspecified asthma, uncomplicated; E66.01 Morbid (severe) obesity due to excess calories; Z68.44 Body mass index [BMI] 60.0-69.9, adult; Z98.890 Other specified postprocedural states; Z79.1 Long term (current) use of non-steroidal anti-inflammatories (NSAID); Z79.899 Other long term (current) drug therapy
CPT/HCPCS: 36415; 80048; 85025; 96361; 96374; 99283; J1885; J7030